=== PATIENT | male | born 1985 ===

== ENCOUNTER 2024-03-17 19:00 | Emergency (ER) | payer SELFPAY ==
[~2024-03-17] VITALS: Ht 180.3 cm; Wt 90.7 kg
[2024-03-17 19:30] VITALS: BP 131/83; PULSE 87; RESP 14; O2SAT 98
[2024-03-17] MEDS: LIDOcaine 1% 30ml preserv. free vial IJ STA (21:32)
[2024-03-17] MEDS ORDERED: CEPH-585 PO (21:38)
[2024-03-17 21:48] VITALS: TEMP 98.9
== END 2024-03-17 21:50 | disposition home or self-care (01) ==
LOC: ER 20:59
DX: L02.511 Cutaneous abscess of right hand (principal)
CPT/HCPCS: 26010; 99283; A6266

== ENCOUNTER 2024-03-21 18:33 | Emergency (ER) | payer OTHER ==
[~2024-03-21] VITALS: Ht 180.3 cm; Wt 85.7 kg
[~2024-03-21 18:33] MED LIST: CEPH-585 PO
[2024-03-21 18:53] VITALS: BP 139/82; PULSE 90; RESP 16; TEMP 98.2; O2SAT 98
== END 2024-03-21 20:15 | disposition left against medical advice (07) ==
LOC: ER 18:34
DX: Z48.00 Encounter for change or removal of nonsurgical wound dressing (principal); Z53.21 Procedure and treatment not carried out due to patient leaving prior to being seen by health care provider